=== PATIENT | male | born 1990 | race Caucasian/White ===

== ENCOUNTER 2017-04-13 21:57 | Emergency (ER) | payer OTHER ==
[~2017-04-13] VITALS: Ht 172.7 cm; Wt 60.0 kg
[~2017-04-13 21:57] MED LIST: Z.0.NO CURRENT MEDS
[2017-04-13 22:58] VITALS: BP 139/98; PULSE 89; RESP 18; TEMP 98.6; O2SAT 96
[2017-04-13 23:25] LABS: AUTOMATED NEUTROPHIL # 7.2 TH/MM3 (1.8-7.7); BASOPHIL # 0.1 TH/MM3 (0-0.2); BASOPHIL % 0.7 % (0.0-2.0); EOSINOPHIL # 0.6 TH/MM3 (0-0.4); EOSINOPHIL % 4.8 % (0.0-4.0); HEMATOCRIT 48.2 % (39.0-51.0); HEMO FLAGS DIFF FINAL; LYMPH % 27.5 % (9.0-44.0); LYMPHOCYTE # 3.5 TH/MM3 (1.0-4.8); MEAN CELL VOLUME 93.9 FL (80.0-100.0); MEAN CORPUSCULAR HEMOGLOBIN 31.3 PG (27.0-34.0); MEAN CORPUSCULAR HGB CONC 33.4 % (32.0-36.0); MONO % 10.1 % (0.0-8.0); NEUT % 56.9 % (16.0-70.0); PLATELET COUNT 227 TH/MM3 (150-450); RED BLOOD COUNT 5.13 MIL/MM3 (4.50-5.90); RED CELL DISTRIBUTION WIDTH 12.6 % (11.6-17.2); WHITE BLOOD COUNT 12.6 TH/MM3 (4.0-11.0)
[2017-04-13 23:40] LABS: ANION GAP 13 MEQ/L (5-15); AST (GOT) 23 U/L (15-37); BICARBONATE 21.7 MEQ/L (21.0-32.0); BLOOD UREA NITROGEN 10 MG/DL (7-18); CHLORIDE 105 MEQ/L (98-107); GLOMERULAR FILTRATION RATE 106 ML/MIN (>89); POTASSIUM 3.8 MEQ/L (3.5-5.1); SODIUM (NA) 140 MEQ/L (136-145)
[2017-04-13 23:41] LABS: ALT (GPT) 21 U/L (12-78)
[2017-04-13 23:43] LABS: ALKALINE PHOSPHATASE 74 U/L (45-117); TOTAL BILIRUBIN ADULT 0.8 MG/DL (0.2-1.0)
--- NOTE | 2017-04-14 00:32 | PD ---
HPI Chief Complaint: Psychiatric Symptoms Time Seen by Provider: 23:00 Travel History International Travel<30 days: No Contact w/Intl Traveler<30days: No Traveled to known affect area: No History of Present Illness HPI This is a 26-year-old male who presents to the emergency department under a Leonard act. Patient evidently drank a lot of alcohol today. He says he drinks every day. He was found unresponsive by his father. His father called 911 and paramedics came to the house. They roused him. His father was going to take him home but they got in an argument at which point he the son said "the way my life is going, I'm going to blow my brains out." I obtained this history from the patient's father. The patient's father reports that his mother has a history of bipolar disorder as well as his uncle and recently his son has been withdrawn from the world in society. This is the first time he is made threats like this. His father used to work as a fruit cutter in the reason he called the police to put the patient under a Leonard act is that he reports at the time he was genuinely concerned for the patient's well-being. The patient currently denies any suicidal ideation and he denies using any other substances aside from alcohol. PFSH Past Medical History Medical History: Denies Significant Hx Tetanus Vaccination: Unknown Influenza Vaccination: No Past Surgical History Surgical History: No Previous Surgery Social History Alcohol Use: Yes (DAILY) Tobacco Use: Yes Substance Use: Yes (MARIJUANA) Allergies-Medications (Allergen,Severity, Reaction): Coded Allergies: No Known Allergies (Verified , 04/13/17) Reported Meds & Prescriptions Reported Meds & Active Scripts Active Reported No Current Meds (Miscellaneous Medication) Misc Review of Systems Except as stated in HPI: all other systems reviewed are Neg Physical Exam Narrative GENERAL:Well appearing, no acute distress SKIN: Focused skin assessment warm and dry. HEAD: Atraumatic. Normocephalic. EYES: Pupils equal and round. No injection or drainage. ENT: Moist mucous membranes NECK: Trachea midline. CARDIOVASCULAR: Regular rate and rhythm. No murmur appreciated. RESPIRATORY: Clear to auscultation. Breath sounds equal bilaterally. GASTROINTESTINAL: Abdomen soft, non-tender, nondistended. MUSCULOSKELETAL: No obvious deformities. NEUROLOGICAL: Awake and alert. No obvious cranial nerve deficits. Moving all extremities. PSYCHIATRIC: Appropriate mood and affect; insight and judgment normal. Data Data Last Documented VS Vital Signs Date Time Temp Pulse Resp B/P Pulse Ox O2 Delivery O2 Flow Rate FiO2 04/13/17 22:58 98.6 89 18 139/98 96 Orders Complete Blood Count With Diff (04/13/17 23:00) Comprehensive Metabolic Panel (04/13/17 23:00) Alcohol (Ethanol) (04/13/17 23:00) Psych Screen (04/13/17 23:00) Drug Screen, Random Urine (04/13/17 23:58) Labs Laboratory Tests Test 04/13/17 23:05 White Blood Count 12.6 TH/MM3 Red Blood Count 5.13 MIL/MM3 Hemoglobin 16.1 GM/DL Hematocrit 48.2 % Mean Corpuscular Volume 93.9 FL Mean Corpuscular Hemoglobin 31.3 PG Mean Corpuscular Hemoglobin 33.4 % Concent Red Cell Distribution Width 12.6 % Platelet Count 227 TH/MM3 Mean Platelet Volume 8.8 FL Neutrophils (%) (Auto) 56.9 % Lymphocytes (%) (Auto) 27.5 % Monocytes (%) (Auto) 10.1 % Eosinophils (%) (Auto) 4.8 % Basophils (%) (Auto) 0.7 % Neutrophils # (Auto) 7.2 TH/MM3 Lymphocytes # (Auto) 3.5 TH/MM3 Monocytes # (Auto) 1.3 TH/MM3 Eosinophils # (Auto) 0.6 TH/MM3 Basophils # (Auto) 0.1 TH/MM3 CBC Comment DIFF FINAL Differential Comment Sodium Level 140 MEQ/L Potassium Level 3.8 MEQ/L Chloride Level 105 MEQ/L Carbon Dioxide Level 21.7 MEQ/L Anion Gap 13 MEQ/L Blood Urea Nitrogen 10 MG/DL Creatinine 0.88 MG/DL Estimat Glomerular Filtration 106 ML/MIN Rate Random Glucose 100 MG/DL Calcium Level 9.3 MG/DL Total Bilirubin 0.8 MG/DL Aspartate Amino Transf 23 U/L (AST/SGOT) Alanine Aminotransferase 21 U/L (ALT/SGPT) Alkaline Phosphatase 74 U/L Total Protein 8.0 GM/DL Albumin 4.0 GM/DL Ethyl Alcohol Level 86 MG/DL MDM Medical Decision Making Medical Screen Exam Complete: Yes Emergency Medical Condition: Yes Interpretation(s) Afebrile, no tachycardia, mildly hypertensive Mild leukocytosis Electrolytes are reassuring Alcohol is 86 Differential Diagnosis Substance-induced mood disorder, substance intoxication, depression, bipolar disorder Narrative Course This is a 26-year-old male who presents to the emergency department having reportedly been intoxicated to the point of unresponsiveness when his father found him. I spoke to his father on the phone and he reports that the patient' s been increasingly withdrawn lately and he made clear suicidal statements to him this evening. I think patient requires psychiatric evaluation in the morning. Otherwise I don't think he has any active medical issues. Lyubov Kim MD Apr 14, 2017 00:32
[2017-04-14 00:47] LABS: AMPHETAMINE, URINE NEG (NEG); BARBITURATES, URINE NEG (NEG); COCAINE, URINE POS (NEG)
--- NOTE | 2017-04-14 09:18 | PD ---
History of Present Illness Chief Complaint: Psychiatric Symptoms Time Seen by Provider: 09:00 Travel History International Travel<30 Days: No Contact w/Intl Traveler<30days: No Known affected area: No Legal Status Legal Status: Leonard Act Leonard Act Signed By: Madonna Lee History of Present Illness: History of Present Illness HPI This is a 26-year-old male with no previous psychiatric history who presents to the emergency department under a Leonard act initiated by [facility]. The BA alleges that [facility] and medical services responded to a call for an unconscious male with possible overdoes. They found the patient to be intoxicated. [facility] got a second request from the patient's father alleging that he had told him he was going to blow his brains out. The patient reports that after the paramedics left he was going to go to his father's house but they got into an argument and he said the above statement. The patient admits to being intoxicated as well as high on cocaine when the argument occurred and he denies that he was suicidal or homicidal. Patient seen. Record reviewed. Patient asleep but awakens easily. Alert, oriented, calm and cooperative. Speech is clear and logical. Clinically sober at this time . Full range of affect. No psychosis. No hector. Denies any suicidal ideation, intent or plan. He also denies that he said such statement to his father but admits that they were arguing. The patient does not own a weapon and does not have acces to one. He reports that he had spent the day with his girlfriend and his 5 month old child during the day and that he has no intention of harming himself because of his daughter. he does admit to use of alcohol and cocaine . PFSH Past Medical History Medical History: Denies Significant Hx Tetanus Vaccination: Unknown Influenza Vaccination: No Past Surgical History Surgical History: No Previous Surgery Psychiatric History Psychiatric History Hx Psychiatric Treatment: PT DENIES CURRENT TREATMENT Ten years ago superficially scratched his arm and was evaluated at [facility] AT AGE 17 FOR SUPERFICIAL CUTS TO LEFT FOREARM. History of Inpatient Treatment: No Guns or firearms in home: No Social History Single male. Has a 5 month old girl. Has contact with the baby. [place] cars x 5 years. Hx Alcohol Use: Yes (DAILY) Hx Tobacco Use: Yes Hx Substance Use: Yes (MARIJUANA, ALCOHOL) Substance Use Type: Alcohol, Marijuana Hx of Substance Use Treatment: No Family Psychiatric History Mother with reported bipolar disorder Allergies-Medications (Allergen,Severity, Reaction): Coded Allergies: No Known Allergies (Verified , 04/13/17) Reported Meds & Prescriptions Reported Meds & Active Scripts Active No Active Prescriptions or Reported Medications Review of Systems Except as stated in HPI: all other systems reviewed are Neg Exam Alert: Yes [place]: Person (ox4) Mood: Calm Affect: Appropriate Speech: Clear, Logical Eye Contact: Normal Memory Intact: Comment (no impairmetn) Hallucinations: Other (negatiove) Delusions: No Suicidal: Ideation (denies any) Homicidal: Ideation (denies any) Insight/Judgement Fair. not impaired. MDM Medical Decision Making Medical Record Reviewed: Yes Assessment/Plan 26 year old male with no psychiatric history, positive for substance use, intoxicated at the time he was BA while involved in an argument with his father. Patient denies any suicidal or homicidal ideation at this time. He states " I have a 5 month old baby and that is a perfect reason not to harm myself" In terms of his alcohol use he denies daily use and is not interested in seeking help. At this time does not meet BA criteria. Will lift BA and discharge. Orders Complete Blood Count With Diff (04/13/17 23:00) Comprehensive Metabolic Panel (04/13/17 23:00) Alcohol (Ethanol) (04/13/17 23:00) Psych Screen (04/13/17 23:00) Drug Screen, Random Urine (04/13/17 23:58) Diet Regular Basic (04/14/17 Breakfast) Results Vital Signs Date Time Temp Pulse Resp B/P Pulse Ox O2 Delivery O2 Flow Rate FiO2 04/13/17 22:58 98.6 89 18 139/98 96 Laboratory Tests Test 04/13/17 04/13/17 23:00 23:05 Urine Opiates Screen NEG Urine Barbiturates Screen NEG Urine Amphetamines Screen NEG Urine Benzodiazepines Screen NEG Urine Cocaine Screen POS Urine Cannabinoids Screen POS White Blood Count 12.6 Red Blood Count 5.13 Hemoglobin 16.1 Hematocrit 48.2 Mean Corpuscular Volume 93.9 Mean Corpuscular Hemoglobin 31.3 Mean Corpuscular Hemoglobin 33.4 Concent Red Cell Distribution Width 12.6 Platelet Count 227 Mean Platelet Volume 8.8 Neutrophils (%) (Auto) 56.9 Lymphocytes (%) (Auto) 27.5 Monocytes (%) (Auto) 10.1 Eosinophils (%) (Auto) 4.8 Basophils (%) (Auto) 0.7 Neutrophils # (Auto) 7.2 Lymphocytes # (Auto) 3.5 Monocytes # (Auto) 1.3 Eosinophils # (Auto) 0.6 Basophils # (Auto) 0.1 CBC Comment DIFF FINAL Differential Comment Sodium Level 140 Potassium Level 3.8 Chloride Level 105 Carbon Dioxide Level 21.7 Anion Gap 13 Blood Urea Nitrogen 10 Creatinine 0.88 Estimat Glomerular Filtration 106 Rate Random Glucose 100 Calcium Level 9.3 Total Bilirubin 0.8 Aspartate Amino Transf 23 (AST/SGOT) Alanine Aminotransferase 21 (ALT/SGPT) Alkaline Phosphatase 74 Total Protein 8.0 Albumin 4.0 Ethyl Alcohol Level 86 Diagnosis Primary Impression: Substance intoxication Psychiatrically Cleared: Yes Med/ Other Pt Specific Info: No Meds Exist/No RX given Prescriptions No Active Prescriptions or Reported Meds Disposition: 01 DISCHARGE HOME Condition: Stable Problem Qualifiers Primary Impression: Substance intoxication Qualified Code: F19.920 - Substance intoxication, uncomplicated Li Zuniga [facility] Apr 14, 2017 09:18
== END 2017-04-14 11:23 | disposition home or self-care (01) ==
LOC: NEPD 21:57 → NEPB 04-14 11:23
DX: F19.920 Other psychoactive substance use, unspecified with intoxication, uncomplicated (principal); Z72.0 Tobacco use
CPT/HCPCS: 80053; 80307; 85025; 99284